=== PATIENT | female | born 1960 | race Hispanic/Latino ===

== ENCOUNTER → 2017-11-24 10:37 | Outpatient (CLI) | payer OTHER, MEDICAID, SELFPAY ==
[2017-11-24 12:03] LABS: Add Manual Diff / Slide Review NO; Basophils Percent Auto 1.2 % (0-2); Eosinophils Percent Auto 6.8 % (2-4); Hematocrit 39.6 % (36-46); Hemoglobin 12.3 g/dL (12.0-16.0); Lymphocytes Percent Auto 24.1 % (25-40); Mean Corpuscular HGB Conc 30.9 % (30-36); Mean Corpuscular Hemoglobin 20.4 PG (26-34); Mean Corpuscular Volume 66.1 fL (80-100); Monocytes Percent Auto 11.5 % (3-14); Neutrophils Absolute Auto 2800 /uL (3000-5900); Neutrophils Percent Auto 56.4 % (50-75); Platelet Count 339 X10^3/uL (150-400); Red Cell Distribution Width 16.3 % (11.6-14.8)
[2017-11-24 12:23] LABS: Alanine Aminotransferase 55 IU/L (9-52); Albumin 4.6 g/dL (3.5-5.0); Albumin Globulin Ratio 1.7 (1.0-2.8); Alkaline Phosphatase 72 U/L (38-126); Aspartate Aminotransferase 30 IU/L (14-36); Bilirubin Total 0.6 mg/dL (0.2-1.3); Blood Urea Nitrogen 15 mg/dL (7-17); C-Reactive Protein Quant 0.5 mg/dL (<1.0); Calcium 9.4 mg/dL (8.4-10.2); Carbon Dioxide 27 mmol/L (22-32); Chloride 104 mmol/L (98-107); Estimated Glomerular Filt Rate > 60.0 mL/min (>60); Globulin 2.7 g/dL (1.7-4.1); Glucose 103 mg/dL (70-100); HEMOLYSIS < 15 (0-50); Potassium 4.3 mmol/L (3.4-5.1); Sodium 145 mmol/L (137-145); Total Protein 7.3 g/dL (6.3-8.2)
[2017-11-24 12:27] LABS: Erythrocyte Sedimentation Rate 9 MM/HR (0-20)
[2017-11-24 12:33] LABS: Rheumatoid Factor < 8.6 IU/mL (<12.0)
[2017-11-24 12:51] LABS: Anisocytosis 1+; Microcytosis 2+
[2017-11-24 17:09] LABS: Hepatitis B Surface Antigen NEGATIVE s/c (NEGATIVE)
[2017-11-24 17:26] LABS: Hep C Virus Ab w/Reflex Quant NEGATIVE s/c (NEGATIVE)
[2017-11-26 12:59] LABS: CCP Antibody (IgG) < 16 Units (< 20)
== END ==
PROVIDERS: PCP Family Medicine; Visit Provider Internal Medicine Rheumatology
DX: M06.4 Inflammatory polyarthropathy (principal); Z79.899 Other long term (current) drug therapy
CPT/HCPCS: 36415; 80053; 83516; 85025; 85651; 86140; 86430; 86803; 87340

== ENCOUNTER 2018-12-17 18:26 | Emergency (ER) | payer MEDICAID, SELFPAY ==
[2018-12-17 18:36] VITALS: BP 169/98; PULSE 78; RESP 14; TEMP 37.1; O2SAT 100
--- NOTE | 2018-12-17 19:13 | ED.GENADULT ---
HPI - General Adult General Chief complaint: Eye Problems Stated complaint: eye pain sudden onset Time Seen by Provider: 12/17/18 18:54 Source: patient Mode of arrival: Wheelchair Limitations: no limitations History of Present Illness HPI narrative: Patient is a 58-year-old female. Has a history of MS. Is not currently being treated for this. Earlier this year had which she describes as an episode of optic neuritis. She was seen in outside facility. She states she was admitted for several weeks because of this. She is not currently on any treatment for this. 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 States that earlier today she had symptoms in her left eye that are consistent with prior history of optic neuritis. She also describes left temporal pain. No prior eye surgeries. No prior issues with her eyes. She does wear corrective lenses for reading. States the symptoms were fairly sudden onset however have been worsening throughout the day. Describes significant photophobia. Related Data Home Medications Medication Instructions Recorded Confirmed Bupropion Hydrochloride 150 mg PO Q DAY #0 12/14/10 (WELLBUTRIN~) CHOLECALCIFEROL (VITAMIN D3) 5,000 iu PO Q DAY #0 12/14/10 (VITAMIN D) GABAPENTIN (Gabapentin) 600 mg PO #0 12/14/10 baclofen 10 mg PO Q DAY #0 12/14/10 cyclobenzaprine 6 mg PO TID #0 12/14/10 topiramate [Topamax] 100 mg PO BID #0 12/14/10 aspirin 81 mg PO QDAY #0 03/11/17 dimethyl fumarate [Tecfidera] 120 mg PO #0 03/11/17 fluoxetine 10 mg PO #0 03/11/17 sucralfate 1 gm PO ACHS #0 03/11/17 tramadol 0 mg PO Q6HP PRN #0 03/11/17 Allergies Allergy/AdvReac Type Severity Reaction Status Date / Time ciprofloxacin [CIPROFLOXACIN] Allergy Severe DECREASED Unverified 05/25/17 11:45 BP tizanidine [TIZANIDINE] Allergy Severe DECREASED Unverified 05/25/17 11:45 BP Sulfa (Sulfonamide Allergy Mild HIVES Unverified 05/25/17 11:45 Antibiotics) [SULFA (SULFONAMIDE ANTIBIOTICS)] Review of Systems Constitutional Constitutional: Denies fever(s), Reports headache(s) and Denies weakness Eyes Eyes: Reports blurry vision, Denies change in vision, Denies decreased night vision, Denies diplopia, Denies eye discharge, Denies loss of vision and Reports photophobia Comments: Pain in left eye ENT Ears, Nose, Mouth, and Throat: Denies vertigo, Denies dizziness, Reports headache(s) and Denies disequilibrium Cardiovascular Cardiovascular: Denies chest pain, Denies syncope and Denies dyspnea Respiratory Respiratory: Denies dyspnea Gastrointestinal Gastrointestinal: Denies abdominal pain, Denies nausea and Denies vomiting Genitourinary Genitourinary: Denies dysuria Musculoskeletal Musculoskeletal: Denies myalgias and Denies arthralgias Integumentary/Breasts Skin/Breast: Denies lesions and Denies rash Neurologic Neurologic: Denies behavioral changes, Denies confusion, Denies vertigo, Denies dizziness, Denies syncope, Reports headache(s), Denies focal weakness, Denies loss of vision, Denies disequilibrium and Denies weakness Psychiatric Psychiatric: Denies behavioral changes and Denies confusion Hematologic/Lymphatic Hematologic/Lymphatic: Denies easy bleeding and Denies easy bruising Patient History Medical History Multiple sclerosis (Acute) Optic neuritis (Acute) Surgical History (Updated 06/14/17 @ 04:56 by Dangelo Shelton MD) Status post vaginal hysterectomy Social History Smoking Status: Never smoker alcohol intake frequency: holidays/special occasions only Substance Use Type: does not use Exam Initial Vital Signs Initial Vital Signs: Vital Signs Temperature 98.7 F 12/17/18 18:36 Pulse Rate 78 12/17/18 18:36 Respiratory Rate 14 12/17/18 18:36 Blood Pressure 169/98 H 12/17/18 18:36 Pulse Oximetry 100 12/17/18 18:36 Const General: cooperative, No comfortable (Uncomfortable) and well groomed Orientation: alert, awake and oriented x3 HENMT Head: normal to inspection and normocephalic Ears: TM's normal bilaterally Nose: external nose normal Face and sinus: normal facial exam Mouth: oral mucosae normal Eyes Periorbital: periorbital findings normal Eyelids: eyelids normal Pupils: pupil size bilaterally 4 EOM: EOM intact bilaterally Resp Effort & Inspection: normal respiratory effort Auscultation: clear to auscultation bilaterally Cardio Rate: regular rate Rhythm: regular rhythm GI Inspection: non-distended Palpation: soft Skin Lesions: no lesions Rashes: no rashes Neuro General: alert, awake and oriented x3 Cognition: normal cognition Speech: speech normal Gait: normal gait Extrem General: normal to inspection and capillary refill normal Psych Appearance: grossly normal and well kempt Course Orders Ordered: ED Orders 12/17/18 19:25 Basic Metabolic Panel Stat C-Reactive Protein Quant Stat Complete Blood Count AUTO DIFF Stat Erythrocyte Sedimentation Rate Stat Thyroid Stimulating Hormone Stat Discontinued Medications Morphine Sulfate (Morphine) 4 mg IV NOW ONE Stop: 12/17/18 20:43 Last Admin: 12/17/18 20:45 Dose: 4 mg Documented by: UZAIR Ondansetron HCl (Zofran) 4 mg IV NOW ONE Stop: 12/17/18 22:25 Last Admin: 12/17/18 22:31 Dose: 4 mg Documented by: MAGGIE Proparacaine HCl (Parcaine 0.5% Ophth Ethel) 1 drops EYE-RIGHT NOW ONE Stop: 12/17/18 19:02 Last Admin: 12/17/18 19:54 Dose: 2 drop Documented by: UZAIR Vital Signs Vital signs: Vital Signs - 8 hr 12/17/18 18:36 Temperature 98.7 F Pulse Rate 78 Respiratory Rate 14 Blood Pressure 169/98 H Pulse Oximetry 100 Medical Decision Making Lab Data Lab results reviewed: Yes I reviewed the patient's lab results. Result diagrams: 12/17/18 19:25 12/17/18 19:25 Labs: Lab Results 12/17/18 12/17/18 12/17/18 Range/Units 19:25 19:25 19:25 WBC 7.6 (4.5-11.0) X10^3/uL RBC 6.15 H (4.0-5.2) X10^6/uL Hgb 12.5 (12.0-16.0) g/dL Hct 39.9 (36-46) % MCV 64.9 L (80-100) fL MCH 20.3 L (26-34) PG MCHC 31.2 (30-36) % RDW 16.3 H (11.6-14.8) % Plt Count 329 (150-400) X10^3/uL Neut % (Auto) 56.3 (50-75) % Lymph % (Auto) 29.4 (25-40) % [place] % (Auto) 7.5 (3-14) % Eos % (Auto) 5.8 H (2-4) % Baso % (Auto) 1.0 (0-2) % Neut # (Auto) 4300 (5384-3216) /uL Lymph # (Auto) 2200 (8987-8140) /uL [place] # (Auto) 600 (0-900) /uL Eos # (Auto) 400 (0-450) /uL Baso # (Auto) 100 (0-100) /uL RBC Morphology Not Reportable Hypochromasia 1+ H Microcytosis 3+ H ESR 7 (0-20) MM/HR Sodium 141 (137-145) mmol/L Potassium 3.7 (3.4-5.1) mmol/L Chloride 104 (98-107) mmol/L Carbon Dioxide 27 (22-32) mmol/L BUN 13 (7-17) mg/dL Creatinine 0.50 L (0.52-1.04) mg/dL Estimated GFR > 60.0 (>60) mL/min BUN/Creatinine Ratio 26.0 H (6-22) Glucose 102 H (70-100) mg/dL Calcium 9.2 (8.4-10.2) mg/dL C-Reactive Protein 0.5 (<1.0) mg/dL TSH 4.41 (0.47-4.68) uIU/mL MDM Narrative Medical decision making narrative: Patient with significant photophobia. We were unable to obtain a visual acuity secondary this. She did receive some improvement with the tetracaine drops. Interocular pressure right eye was 22 interocular pressure left eye was 30 to however this was also in the setting where she was squinting quite a bit and also was resisting me opening her eye. This could be falsely elevated. She does have left-sided temporal pain however her ESR and CRP are negative. I feel this is unlikely temporal arteritis. Does have a history of optic neuritis. States this feels like prior history of optic neuritis. I did discuss the case with with Ophthalmology at [facility] who stated that given the complexity of the patient's symptoms that transferring her would not be unreasonable. Patient is stable for transport. I did discuss this with the patient she expressed understanding and agreement. Discharge Plan Departure Patient Disposition: [facility] Clinical Impression: Acute eye pain Prescriptions: No Action CHOLECALCIFEROL (VITAMIN D3) (VITAMIN D) 5,000 iu PO Q DAY Qty: 0 RF: 0 baclofen 10 MG tablet 10 mg PO Q DAY Qty: 0 RF: 0 GABAPENTIN (Gabapentin) 600 mg PO Qty: 0 RF: 0 Bupropion Hydrochloride (WELLBUTRIN~) 150 mg PO Q DAY Qty: 0 RF: 0 topiramate [Topamax] 100 MG tablet 100 mg PO BID Qty: 0 RF: 0 cyclobenzaprine 5 MG tablet 6 mg PO TID Qty: 0 RF: 0 aspirin 81 MG tablet,chewable 81 mg PO QDAY Qty: 0 RF: 0 sucralfate 1 GM tablet 1 gm PO ACHS Qty: 0 RF: 0 tramadol 50 MG tablet 0 mg PO Q6HP PRNQty: 0 RF: 0 fluoxetine 10 MG capsule 10 mg PO Qty: 0 RF: 0 dimethyl fumarate [Tecfidera] 120 MG capsule,delayed release(DR/EC) 120 mg PO Qty: 0 RF: 0 Referrals: Bennett Dunne MD [Primary Care Provider] -
[2018-12-17 19:37] LABS: Add Manual Diff / Slide Review NO; Basophils Absolute Auto 100 /uL (0-100); Eosinophils Absolute Auto 400 /uL (0-450); Eosinophils Percent Auto 5.8 % (2-4); Hematocrit 39.9 % (36-46); Hemoglobin 12.5 g/dL (12.0-16.0); Lymphocytes Absolute Auto 2200 /uL (1100-4500); Lymphocytes Percent Auto 29.4 % (25-40); Mean Corpuscular HGB Conc 31.2 % (30-36); Mean Corpuscular Hemoglobin 20.3 PG (26-34); Mean Corpuscular Volume 64.9 fL (80-100); Monocytes Absolute Auto 600 /uL (0-900); Monocytes Percent Auto 7.5 % (3-14); Neutrophils Absolute Auto 4300 /uL (1500-7000); Neutrophils Percent Auto 56.3 % (50-75); Platelet Count 329 X10^3/uL (150-400); Red Blood Cell Count 6.15 X10^6/uL (4.0-5.2); Red Cell Distribution Width 16.3 % (11.6-14.8); White Blood Cell Count 7.6 X10^3/uL (4.5-11.0)
[2018-12-17 19:50] LABS: Erythrocyte Sedimentation Rate 7 MM/HR (0-20)
[2018-12-17 19:54] LABS: Blood Urea Nitrogen 13 mg/dL (7-17); C-Reactive Protein Quant 0.5 mg/dL (<1.0); Calcium 9.2 mg/dL (8.4-10.2); Carbon Dioxide 27 mmol/L (22-32); Chloride 104 mmol/L (98-107); Estimated Glomerular Filt Rate > 60.0 mL/min (>60); Glucose 102 mg/dL (70-100); HEMOLYSIS < 15 (0-50); Potassium 3.7 mmol/L (3.4-5.1); Sodium 141 mmol/L (137-145)
[2018-12-17] MEDS: PROPARACAINE 0.5% OPHTH SOL 1 DROPS EYE-RIGHT (19:54)
[2018-12-17 20:09] LABS: Hypochromasia 1+; Microcytosis 3+
[2018-12-17 20:21] LABS: Thyroid Stimulating Hormone 4.41 uIU/mL (0.47-4.68)
--- NOTE | 2018-12-17 20:39 | PC.NURSE ---
Allie Paris, Friend lives here in [place]. Phone number # [phone]
[2018-12-17] MEDS: MORPHINE 4 MG/ML INJ IV (20:45)
[2018-12-17 22:31] VITALS: BP 133/73; PULSE 54; RESP 14; O2SAT 99
[2018-12-17] MEDS: ONDANSETRON 4 MG/2 ML INJ IV (22:31)
== END 2018-12-17 22:51 | disposition short-term general hospital (02) ==
PROVIDERS: Emergency Provider Emergency Medicine; PCP Family Medicine
DX: H57.12 Ocular pain, left eye (principal); H46.9 Unspecified optic neuritis; H53.149 Visual discomfort, unspecified
CPT/HCPCS: 36415; 80048; 84443; 85025; 85651; 86140; 96374; 96375; 99283; 99284; J2270; J2405

== ENCOUNTER → 2019-02-08 11:31 | Outpatient (CLI) | payer OTHER, MEDICAID, SELFPAY ==
[2019-02-08 11:39] LABS: Bacteria Urine None Seen; RBC Urine None Seen (0-5/HPF)
[2019-02-08 12:00] LABS: Add Manual Diff / Slide Review NO; Basophils Absolute Auto 100 /uL (0-100); Basophils Percent Auto 1.8 % (0-2); Eosinophils Absolute Auto 500 /uL (0-450); Eosinophils Percent Auto 7.3 % (2-4); Hematocrit 36.6 % (36-46); Hemoglobin 11.8 g/dL (12.0-16.0); Lymphocytes Absolute Auto 1900 /uL (1100-4500); Lymphocytes Percent Auto 24.8 % (25-40); Mean Corpuscular HGB Conc 32.2 % (30-36); Mean Corpuscular Hemoglobin 20.8 PG (26-34); Mean Corpuscular Volume 64.7 fL (80-100); Monocytes Absolute Auto 600 /uL (0-900); Monocytes Percent Auto 8.5 % (3-14); Neutrophils Absolute Auto 4300 /uL (1500-7000); Neutrophils Percent Auto 57.6 % (50-75); Platelet Count 357 X10^3/uL (150-400); Red Blood Cell Count 5.66 X10^6/uL (4.0-5.2); Red Cell Distribution Width 15.8 % (11.6-14.8); White Blood Cell Count 7.5 X10^3/uL (4.5-11.0)
[2019-02-08 12:26] LABS: Appearance Urine UA CLOUDY; Bilirubin Urine UA NEGATIVE (NEGATIVE); Color Urine UA YELLOW; Glucose Urine UA NEGATIVE (Negative); Ketones Urine UA NEGATIVE (NEGATIVE); Leukocyte Esterase Urine UA NEGATIVE (NEGATIVE); Nitrite Urine UA NEGATIVE (Negative); Occult Blood Urine UA NEGATIVE (Negative); Protein Urine UA NEGATIVE (Negative); Urobilinogen Urine UA 0.2 E.U./dL (0.2)
[2019-02-08 12:29] LABS: pH Urine UA 7.5 (4.5-8.0)
[2019-02-08 12:33] LABS: Erythrocyte Sedimentation Rate 19 MM/HR (0-20)
[2019-02-08 12:35] LABS: Hypochromasia 1+; Microcytosis 3+; Target Cells 2+
[2019-02-08 12:38] LABS: Squamous Epithelial Cell Urine 1-5 /HPF (0-5/HPF); WBC Urine 0-1/HPF (0-5/HPF)
[2019-02-08 12:39] LABS: Amorphous Sediment Urine 3+; Culture Indicated Urine Cult Not Indicated
[2019-02-08 13:14] LABS: Alanine Aminotransferase 47 IU/L (<35); Albumin 4.6 g/dL (3.5-5.0); Albumin Globulin Ratio 1.6 (1.0-2.8); Alkaline Phosphatase 92 U/L (38-126); Aspartate Aminotransferase 37 IU/L (14-36); Bilirubin Total 0.7 mg/dL (0.2-1.3); Blood Urea Nitrogen 15 mg/dL (7-17); C-Reactive Protein Quant 0.8 mg/dL (<1.0); Calcium 9.5 mg/dL (8.4-10.2); Carbon Dioxide 25 mmol/L (22-32); Chloride 106 mmol/L (98-107); Estimated Glomerular Filt Rate > 60.0 mL/min (>60); Globulin 2.8 g/dL (1.7-4.1); Glucose 92 mg/dL (70-100); HEMOLYSIS < 15 (0-50); Potassium 3.9 mmol/L (3.4-5.1); Sodium 142 mmol/L (137-145); Total Protein 7.4 g/dL (6.3-8.2)
[2019-02-08 14:28] LABS: Creatinine Urine Random 91.4 mg/dL; Protein (Total) Urine Random 9 mg/dL (0-12); Protein Creatinine Ratio Urine 0.09 GRAM/24H
== END ==
PROVIDERS: PCP Family Medicine; Visit Provider Internal Medicine Rheumatology
DX: M06.09 Rheumatoid arthritis without rheumatoid factor, multiple sites (principal); Z79.899 Other long term (current) drug therapy
CPT/HCPCS: 36415; 80053; 81001; 82570; 84156; 85025; 85651; 86140

== ENCOUNTER → 2019-06-13 12:39 | Outpatient (CLI) | payer OTHER, MEDICAID, SELFPAY ==
[2019-06-13 13:38] LABS: Add Manual Diff / Slide Review NO; Basophils Absolute Auto 100 /uL (0-100); Basophils Percent Auto 0.8 % (0-2); Eosinophils Absolute Auto 700 /uL (0-450); Eosinophils Percent Auto 10.6 % (2-4); Hematocrit 38.1 % (36-46); Hemoglobin 11.9 g/dL (12.0-16.0); Lymphocytes Absolute Auto 2200 /uL (1100-4500); Lymphocytes Percent Auto 32.7 % (25-40); Mean Corpuscular HGB Conc 31.1 % (30-36); Mean Corpuscular Hemoglobin 20.8 PG (26-34); Mean Corpuscular Volume 66.8 fL (80-100); Monocytes Absolute Auto 400 /uL (0-900); Monocytes Percent Auto 6.5 % (3-14); Neutrophils Absolute Auto 3400 /uL (1500-7000); Neutrophils Percent Auto 49.4 % (50-75); Platelet Count 316 X10^3/uL (150-400); Red Cell Distribution Width 16.5 % (11.6-14.8); White Blood Cell Count 6.8 X10^3/uL (4.5-11.0)
[2019-06-13 14:07] LABS: Alanine Aminotransferase 43 IU/L (<35); Albumin Globulin Ratio 1.5 (1.0-2.8); Alkaline Phosphatase 76 U/L (38-126); Aspartate Aminotransferase 41 IU/L (14-36); BUN Creatinine Ratio 24.6 (6-22); Bilirubin Total 0.7 mg/dL (0.2-1.3); Blood Urea Nitrogen 14 mg/dL (7-17); Calcium 9.8 mg/dL (8.4-10.2); Carbon Dioxide 20 mmol/L (22-32); Chloride 108 mmol/L (98-107); Estimated Glomerular Filt Rate > 60.0 mL/min (>60); Globulin 3.4 g/dL (1.7-4.1); Glucose 140 mg/dL (70-100); HEMOLYSIS < 15 (0-50); Potassium 3.6 mmol/L (3.4-5.1); Sodium 141 mmol/L (137-145); Total Protein 8.4 g/dL (6.3-8.2)
[2019-06-13 14:08] LABS: Anisocytosis 1+; Microcytosis 2+; Target Cells 1+
== END ==
PROVIDERS: PCP Family Medicine; Referring Provider Internal Medicine Rheumatology; Visit Provider Internal Medicine Rheumatology
DX: M06.09 Rheumatoid arthritis without rheumatoid factor, multiple sites (principal); Z79.899 Other long term (current) drug therapy
CPT/HCPCS: 36415; 80053; 85025

== ENCOUNTER → 2019-09-20 10:39 | Outpatient (CLI) | payer OTHER, MEDICAID, SELFPAY ==
--- NOTE | 2019-09-24 09:47 | PM.PFT.1 ---
Pulmonary Function Test Referral & Results Date Patient Seen: 09/20/19 Requesting provider: Rachelle Gomes Results: The spirometry demonstrates an FVC of 2.81 L which is 89% of predicted. The FEV1 was measured at 2.22 L which is 90% of predicted. The FEV1/FVC ratio was 79 which is 99% of predicted. Following the administration of bronchodilator there was no appreciable change to above normal numbers. Lung volumes show an SVC of 2.84 L which is 97% of predicted. The diffusing capacity was measured at 23.07 which is 107% of predicted. The maximum voluntary ventilation was normal Interpretation: This study demonstrates normal pulmonary function
== END ==
PROVIDERS: PCP Family Medicine; Referring Provider Family Medicine; Visit Provider Family Medicine
DX: M34.1 CR(E)ST syndrome (principal)
CPT/HCPCS: 94060; 94726; 94729

== ENCOUNTER → 2019-10-10 11:01 | Outpatient (CLI) | payer OTHER, MEDICAID, SELFPAY ==
--- NOTE | 2019-10-10 11:07 | DI.CT.S_ITS ---
PROCEDURE: CT CHEST HIGH RESOLUTION INDICATIONS: CR(E)ST syndrome TECHNIQUE: Noncontrast 1.0 and 5.0 mm thick contiguous axial sections from the pulmonary apex to the posterior costophrenic angles, with 7 mm thick coronal and sagittal MIP reformats. 1 mm thick dynamic expiratory images acquired through the upper, mid, and lower lungs. 1.0 mm thick axial sections acquired from the kathya to the posterior costophrenic angles in the prone end-inspiration position. For radiation dose reduction, the following was used: automated exposure control, adjustment of mA and/or kV according to patient size. COMPARISON: [facility], CR, XR CHEST 1 VIEW, 09/01/2019, 23:35. FINDINGS: Image quality: Excellent. Lungs: Normal examination. Pleura: No pleural effusions or pneumothorax. Mediastinum: Heart size is normal. No pericardial effusion. Thoracic aorta and central pulmonary arteries are normal in size. Esophagus is normal in caliber. Bones and chest wall: No suspicious bony lesions. No vertebral body compression fractures. Abdomen: Visualized upper abdominal solid organs and bowel loops appear normal. IMPRESSION: Normal examination, no evidence of fibrotic change or interstitial lung disease. Dictated by: Teodoro Moe M.D. on 10/10/2019 at 12:09 Approved by: Teodoro Moe M.D. on 10/10/2019 at 12:10
== END ==
PROVIDERS: PCP Family Medicine; Referring Provider Internal Medicine Rheumatology; Visit Provider Internal Medicine Rheumatology
DX: M34.1 CR(E)ST syndrome (principal)
CPT/HCPCS: 71250

== ENCOUNTER 2020-01-18 09:32 | Day surgery (SDC) | payer OTHER, MEDICAID, SELFPAY ==
--- NOTE | 2020-01-18 | PATH_ITS ---
[facility] Accession Number: [id number] . 01 Material submitted: . colon - POLYP AT 35 CM . 01 Clinical history: . SCREENING COLONOSCOPY . 02 Diagnosis: Colon, Polyp at 35 cm, Biopsy: Hyperplastic polyp. Additional levels were examined. [facility] 01/22/2020 1625 Local . 02 Electronically signed: . Chapis Wilkes MD, Pathologist NPI- [id number] . 01 Gross description: . POLYP AT 35 CM: Received in formalin is 1 fragment(s) of garcia, soft tissue measuring 0.4 x 0.4 x 0.1 cm submitted entirely in 1 cassette(s) /QBJ 01/19/2020 0646 Local . 02 Pathologist provided ICD-10: K63.5 . 02 CPT . 813554 Performed at: 01 [facility] [address] [id number] MD [place] Patiño MD Phone: [phone] Performed at: 02 [facility] [address] [place], [place] [id number] MD Chapis Wilkes MD Phone: [phone]
[2020-01-18 10:28] VITALS: BP 115/70; PULSE 59; RESP 18; TEMP 36.4; O2SAT 98
[2020-01-18 10:31] VITALS: BMI 27.6
[2020-01-18] MEDS: SODIUM CHLORIDE 0.9% 1,000 ML 200 ML IV (10:45)
--- NOTE | 2020-01-18 11:02 | PM.HP.1 ---
History of Present Illness History of Present Illness Date Patient Seen: 01/18/20 Time Patient Seen: 11:02 Chief complaint: SCREENING COLONOSCOPY Narrative: This is a 59-year-old woman who had a screening colonoscopy 5 years ago, and was recommended to have a repeat in 5 years due to poor prep. She denies any symptoms of hematochezia, unexplained abdominal pain, unexplained weight loss. She does say she sometimes has melena, and her primary doctor believe she has an ulcer. She had an EGD in [address] Ivan, which was essentially normal. ROS: Arthritis, pain in knees and neck, headaches/migraines, multiple sclerosis, fibromyalgia. Thirteen system review is otherwise negative other than as mentioned below and in HPI. PE: GENERAL: Well groomed and cooperative. Appears stated age. Answers questions promptly and appropriately. Vital signs noted. HENT: Normocephalic, atraumatic. Hearing intact. EYES: Conjunctiva pink, sclera white, no periorbital swelling. CARDIOVASCULAR: Regular rate. No pedal edema. RESPIRATORY: Non-tachypneic, breathing comfortably on room air. GASTROINTESTINAL: Abdomen soft and non-distended GENITALURINARY: No flank tenderness. MUSCULOSKELETAL: Equal tone and mass bilaterally. SKIN: Warm, dry, soft, appropriate color for ethnicity. No other lesions, rashes, or wounds. NEURO: Alert and Oriented X 3. No gross sensory deficits, or cognitive issues. PSYCH: Appropriate affect and mood. Patient History Medical History Multiple sclerosis Optic neuritis Surgical History Status post vaginal hysterectomy Family & Social History Social History: household members none Tobacco & Substance use: Smoking Status Never smoker alcohol intake never alcohol intake frequency holiday/special occasion Substance Use Type does not use Meds Home Medications and Allergies Home Medications Medication Instructions Recorded Confirmed Type CHOLECALCIFEROL (VITAMIN D3) 50,000 iu PO WEEKLY #0 12/14/10 01/18/20 History (VITAMIN D) GABAPENTIN (Gabapentin) 600 mg PO DAILY #0 12/14/10 01/18/20 History baclofen 10 mg PO TID #0 12/14/10 01/18/20 History topiramate [Topamax] 100 mg PO BID #0 12/14/10 01/18/20 History fluoxetine 10 mg PO DAILY #0 03/11/17 01/18/20 History sucralfate 1 gm PO ACHS #0 03/11/17 01/18/20 History tramadol 50 - 100 mg PO Q6HP PRN #0 03/11/17 01/18/20 History albuterol sulfate 2.5 mg INHALATION Q4H PRN 01/18/20 01/18/20 History cetirizine 10 mg PO DAILY 01/18/20 01/18/20 History fluticasone furoate 2 inh INHALATION DAILY 01/18/20 01/18/20 History folic acid 5 mg PO DAILY 01/18/20 01/18/20 History methotrexate 15 mg PO WEEKLY 01/18/20 01/18/20 History prochlorperazine 10 mg PO TID PRN 01/18/20 01/18/20 History sucralfate 1 g PO QACHS PRN 01/18/20 01/18/20 History sumatriptan 100 mg PO Q4H PRN 01/18/20 01/18/20 History topiramate 100 mg PO BID 01/18/20 01/18/20 History tramadol 50 mg PO Q6H PRN 01/18/20 01/18/20 History Allergies Allergy/AdvReac Type Severity Reaction Status Date / Time ciprofloxacin [CIPROFLOXACIN] Allergy Severe DECREASED Verified 01/18/20 10:06 BP tizanidine [TIZANIDINE] Allergy Severe DECREASED Verified 01/18/20 10:06 BP Sulfa (Sulfonamide Allergy Mild HIVES Verified 01/18/20 10:06 Antibiotics) [SULFA (SULFONAMIDE ANTIBIOTICS)] Exam Vital Signs (past 8 hours): - 01/18/20 10:28 Temperature 97.6 F Pulse Rate 59 L Respiratory Rate 18 Blood Pressure 115/70 Pulse Oximetry 98 Oxygen Delivery Method Room Air Assessment & Plan Assessment and plan (1) Melena: Status: Acute (2) At average risk for colon cancer: Status: Acute (3) Migraines: Status: Acute (4) Multiple sclerosis: Status: Acute Assessment & Plan narrative: Risks and benefits of screening colonoscopy and possible polypectomy were discussed with the patient including risk of bleeding, perforation, need for additional procedures, risks of anesthesia. The patient desires to proceed with the colonoscopy procedure. COVID-19 COVID-19 status: Negative Result date/Date tested (Pos, Neg/Pending): 01/18/20 Time Spent With Patient Time with patient: 15-24 minutes Quality VTE Deep Vein Thrombosis/Pulmonary Embolism Present on Admission: No
[2020-01-18] MEDS: MIDAZOLAM 5 MG/5 ML VIAL IV (11:07)
[2020-01-18] MEDS: fentaNYL 250 MCG/5 ML INJ IV (11:07)
--- NOTE | 2020-01-18 11:27 | P.OP.ENDO_ITS ---
Operative Date/Time/Diagnoses Date of procedure: 01/18/20 Time of procedure: 11:27 Pre-op diagnosis: Average risk for colon cancer, due for follow-up screening colonoscopy Post-op diagnosis: other (Small polyp at 35 cm) Procedure & Clinicians Study performed: Colonoscopy Procedural sedation performed by the endoscopist Polypectomy with Jumbo forceps at 35 senna Same procedure as scheduled: Yes Indications: Average risk for colon cancer, due for screening colonoscopy Surgeon: Jewels Kinney Procedure Notes SCOAP/Timeout: Performed Procedure in detail: The patient was brought to the room and placed in left lateral decubitus position with all bony prominences padded. A time-out was performed and then the patient was given procedural sedation starting with 2 mg of Versed and 100 mcg of fentanyl. A total of 4 mg of Versed and 150 micro g of fentanyl were given for the entire procedure. Vitals were monitored throughout the procedure and remained stable. Once adequately sedated, the procedure was begun. A rectal exam was performed revealing no abnormalities. The colonoscope was then introduced to the rectum and advanced to the cecum in the usual fashion. The cecum was identified by the appendiceal orifice, the mucosal tri- fold, and the ileocecal valve. The scope was then retracted while rotating side to side and examining each mucosal fold. A small polyp was found at 35 cm and removed with Jumbo forceps. At the conclusion of the procedure retroflexion was performed and small grade 1-2 internal hemorrhoids without stigmata of bleeding were seen. The scope was then withdrawn from the rectum the procedure was concluded. The patient tolerated the procedure well and was transferred to the PACU in stable condition. Scope withdrawal time: 13 Sedation minutes: 24 Findings: polyp Specimen(s): other (Small polyp at 35 cm) Complications: none Impression: Normal colon with a benign-appearing polyp Post-procedure Recommendations: Colonscopy in 10 years (As long as pathology is benign) Follow up: as needed Disposition: PACU
[2020-01-18 11:33] VITALS: BP 110/64; PULSE 60; RESP 10; TEMP 36.6; O2SAT 99
[2020-01-18 11:38] VITALS: BP 106/67; PULSE 59; RESP 10; O2SAT 100
[2020-01-18 11:43] VITALS: BP 96/69; PULSE 68; RESP 16; O2SAT 100
[2020-01-18 11:50] VITALS: BP 105/64; PULSE 60; RESP 14; O2SAT 100
--- NOTE | 2020-01-18 12:14 | SUR.PHASEII ---
Pt's ride is currently at [facility] having tires changed. He will call when he gets to [facility].
[2020-01-18 12:15] VITALS: BP 118/64; PULSE 68; RESP 14; TEMP 37.2; O2SAT 100
== END 2020-01-18 12:40 | disposition home or self-care (01) ==
PROVIDERS: PCP Family Medicine; Referring Provider Surgery; Visit Provider Surgery
PROC: 0DJD8ZZ Inspection of Lower Intestinal Tract, Via Natural or Artificial Opening Endoscopic (ICD-10-PCS; CPT 45378; principal; 2020-01-18 10:45)
DX: K92.1 Melena (principal); G35 Multiple sclerosis; G43.909 Migraine, unspecified, not intractable, without status migrainosus; K64.0 First degree hemorrhoids; K63.5 Polyp of colon
CPT/HCPCS: 45380; 99152; J2250; J3010

== ENCOUNTER 2020-04-04 09:33 | Day surgery (SDC) | payer OTHER, MEDICAID, SELFPAY ==
--- NOTE | 2020-04-04 | PATH_ITS ---
[facility] Accession Number: [id number] . 01 Material submitted: . PART A: duodenum - DUODENUM PART B: gastrointestinal site - STOMACH PART C: gastrointestinal site - STOMACH POLYPS PART D: esophagus - ESOPHAGUS . 01 Clinical history: . EGD . 02 Diagnosis: A. Duodenum, Biopsy: Duodenal mucosa with no diagnostic abnormality. Negative for active inflammation, features of sprue, dysplasia and malignancy. . B. Stomach, Biopsy: Antral mucosa with no significant diagnostic abnormality. No evidence of Helicobacter on H/E stain. Negative for intestinal metaplasia. Negative for dysplasia and malignancy. . C. Stomach, Polyps, Biopsies: Body-type mucosa with a few dilated glands, consistent with fundic gland polyps. No evidence of Helicobacter on H/E stain. Negative for intestinal metaplasia. Negative for dysplasia and malignancy. . D. Esophagus, Biopsy: Squamocolumnar junctional mucosa with no diagnostic abnormality. Negative for intestinal metaplasia. Negative for dysplasia and malignancy. . [facility] 04/08/2020 0952 Local . 02 Comment: Part B: An immunohistochemical stain will be performed to evaluate for Helicobacter organisms and the results reported as an addendum. . 02 Electronically signed: . Chapis Wilkes MD, Pathologist NPI- [id number] . 01 Gross description: . Part A: DUODENUM: Received in formalin are 2 fragment(s) of garcia, soft tissue measuring 0.3 x 0.2 x 0.2 cm to 0.2 x 0.2 x 0.1 cm submitted entirely in 1 cassette(s) Part B: STOMACH: Received in formalin is 1 fragment(s) of garcia, soft tissue measuring 0.3 x 0.3 x 0.2 cm submitted entirely in 1 cassette(s) Part C: STOMACH POLYPS: Received in formalin are 3 fragment(s) of garcia, soft tissue measuring 0.3 x 0.2 x 0.1 cm to 0.2 x 0.2 x 0.1 cm submitted entirely in 1 cassette(s) Part D: ESOPHAGUS: Received in formalin are 2 fragment(s) of garcia, soft tissue measuring 0.4 x 0.3 x 0.1 cm to 0.4 x 0.2 x 0.1 cm submitted entirely in 1 cassette(s) /QZee 04/05/2020 [facility] Local . 02 Pathologist provided ICD-10: K92.1 . 02 CPT . 160304, 943690, 009030, 929624, L21373 Performed at: 01 [facility] [address] [place] [address], [place], [place] [id number] MD [place] Patiño MD Phone: [phone] Performed at: 02 [facility] [address] [place], [place] [id number] MD Chapis Wilkes MD Phone: [phone]
[2020-04-04 09:57] VITALS: BP 124/67; PULSE 68; RESP 16; TEMP 37; O2SAT 98; BMI 28.3
[2020-04-04] MEDS: SODIUM CHLORIDE 0.9% 1,000 ML 200 ML IV (10:19)
--- NOTE | 2020-04-04 10:45 | PM.PREOP ---
Pre-operative Note COVID-19 COVID-19 status: Negative Result date/Date tested (Pos, Neg/Pending): 04/02/20 Interval Note History & Physical reviewed/Exam performed by Physician: Yes Changes to H&P: No ASA Class (for procedural sedation): II
--- NOTE | 2020-04-04 10:57 | PM.OP.ENDO ---
Operative Date/Time/Diagnoses Date of procedure: 04/04/20 Time of procedure: 10:57 Pre-op diagnosis: Melena, epigastric pain Post-op diagnosis: other (Severe endoscopic gastritis) Procedure & Clinicians Study performed: Esophagogastroduodenoscopy Procedural sedation performed by the endoscopy Biopsies of duodenum, stomach, gastric polyps, distal soft Same procedure as scheduled: Yes Indications: Melena, epigastric pain Surgeon: Jewels Kinney Procedure Notes SCOAP/Timeout: Performed Procedure in detail: The patient was brought to the room and placed in left lateral decubitus position with all bony prominences padded. A bite block was positioned in the patient's mouth to protect the lips, teeth, and tongue for the procedure. A time-out was performed and then the patient was given procedural sedation starting with mg of Versed and [100 mcg of fentanyl. Vitals were monitored throughout the procedure and remained stable. Once adequately sedated, the procedure was begun. The lubricated gastroscope was passed through the bite block and across the tongue and into the esophagus without incident. A tubular view of the esophagus was maintained as the scope was advanced through the esophagus and into the stomach. The scope was advanced through the stomach and to the pylorus. The scope was gently popped through the pylorus and into the duodenal bulb. The scope was flexed and advanced into the second and third portions of the duodenum. The duodenum and duodenal bulb appeared fairly normal with the appearance of mild inflammation. Biopsies were taken. The scope was withdrawn into the stomach. The antrum revealed uist-ca-datikosw gastritis. Biopsies were taken. There were multiple benign-appearing polyps in the stomach. Two of them were removed for pathology. The upper body and fundus of the stomach revealed severe gastritis. The scope was retroflexed and the gastric cardia was examined. The hiatus appeared fairly normal without any significant gaping around the scope, or visible ulceration. The scope was then straightened, and withdrawn into the esophagus. The Z-line appeared fairly normal. Biopsies were taken. The distal esophagusappeared fairly normal. The scope was then withdrawn through the esophagus with a tubular view. The scope was then withdrawn from the patient the procedure was concluded. The patient tolerated the procedure well and was transferred to the PACU in stable condition. Sedation minutes: 14 Findings: gastritis (Severe) and polyp (Benign-appearing gastric polyps) Specimen(s): other (Duodenum, stomach, gastric polyps, distal esophagus) Complications: none Impression: There was the visual appearance of severe gastritis in the upper body and fundus of the stomach. This is the most likely source of melena, and pain. Post-procedure Recommendations: Start medication(s) (Would start PPI) and Other recommendation (Follow-up EGD, and any further recommendations will be made when biopsy results return.) Follow up: as needed Disposition: PACU
[2020-04-04] MEDS: MIDAZOLAM 5 MG/5 ML VIAL IV (11:15)
[2020-04-04] MEDS: LIDOCAINE 4% SOLN 50 ML 20 ML TOP (11:15)
[2020-04-04 11:16] VITALS: BP 124/67; PULSE 67; RESP 11; TEMP 36.1; O2SAT 96
[2020-04-04] MEDS: fentaNYL 250 MCG/5 ML INJ IV (11:16)
[2020-04-04 11:21] VITALS: BP 108/71; PULSE 64; RESP 11; O2SAT 96
[2020-04-04 11:26] VITALS: BP 103/60; PULSE 71; RESP 11; O2SAT 97
[2020-04-04 11:32] VITALS: BP 117/75; PULSE 66; RESP 15; O2SAT 97
[2020-04-04 11:36] VITALS: BP 116/60; PULSE 67; RESP 11; TEMP 36.7; O2SAT 95
== END 2020-04-04 12:05 | disposition home or self-care (01) ==
PROVIDERS: PCP Family Medicine; Referring Provider Surgery; Visit Provider Surgery
PROC: 0DJ08ZZ Inspection of Upper Intestinal Tract, Via Natural or Artificial Opening Endoscopic (ICD-10-PCS; CPT 43235; principal; 2020-04-04 10:45)
DX: R10.13 Epigastric pain (principal); K92.1 Melena; K31.7 Polyp of stomach and duodenum; K29.60 Other gastritis without bleeding
CPT/HCPCS: 43239; 99152; J2250; J3010

== ENCOUNTER → 2020-12-04 10:52 | Outpatient (CLI) | payer OTHER, MEDICAID, SELFPAY ==
[2020-12-04 12:19] LABS: Add Manual Diff / Slide Review NO; Basophils Absolute Auto 100 /uL (0-100); Basophils Percent Auto 2.3 % (0-2); Eosinophils Absolute Auto 600 /uL (0-450); Eosinophils Percent Auto 10.8 % (2-4); Hematocrit 38.7 % (36-46); Hemoglobin 12.1 g/dL (12.0-16.0); Lymphocytes Absolute Auto 2000 /uL (1100-4500); Lymphocytes Percent Auto 36.3 % (25-40); Mean Corpuscular HGB Conc 31.2 % (30-36); Mean Corpuscular Hemoglobin 20.7 PG (26-34); Mean Corpuscular Volume 66.4 fL (80-100); Monocytes Absolute Auto 400 /uL (0-900); Monocytes Percent Auto 7.6 % (3-14); Neutrophils Absolute Auto 2300 /uL (1500-7000); Platelet Count 298 X10^3/uL (150-400); Red Blood Cell Count 5.82 X10^6/uL (4.0-5.2); Red Cell Distribution Width 16.3 % (11.6-14.8); White Blood Cell Count 5.4 X10^3/uL (4.5-11.0)
[2020-12-04 12:47] LABS: Alanine Aminotransferase 133 IU/L (<35); Albumin 4.6 g/dL (3.5-5.0); Albumin Globulin Ratio 1.5 (1.0-2.8); Alkaline Phosphatase 80 U/L (38-126); Aspartate Aminotransferase 84 IU/L (14-36); BUN Creatinine Ratio 20.8 (6-22); Bilirubin Total 0.6 mg/dL (0.2-1.3); Blood Urea Nitrogen 11 mg/dL (7-17); Calcium 9.4 mg/dL (8.4-10.2); Carbon Dioxide 29 mmol/L (22-32); Chloride 104 mmol/L (98-107); Estimated Glomerular Filt Rate > 60.0 mL/min (>60); Glucose 93 mg/dL (80-110); HEMOLYSIS < 15 (0-50); Potassium 4.3 mmol/L (3.4-5.1); Sodium 143 mmol/L (137-145); Total Protein 7.6 g/dL (6.3-8.2)
[2020-12-04 13:30] LABS: Microcytosis 1+; Target Cells 2+
== END ==
PROVIDERS: PCP Family Medicine; Referring Provider Internal Medicine Rheumatology; Visit Provider Internal Medicine Rheumatology
DX: Z79.899 Other long term (current) drug therapy (principal); M06.09 Rheumatoid arthritis without rheumatoid factor, multiple sites
CPT/HCPCS: 36415; 80053; 85025

== ENCOUNTER → 2021-01-01 10:34 | Outpatient (CLI) | payer OTHER, MEDICAID, SELFPAY ==
[2021-01-01 11:07] LABS: Add Manual Diff / Slide Review NO; Basophils Absolute Auto 100 /uL (0-100); Eosinophils Absolute Auto 500 /uL (0-450); Eosinophils Percent Auto 7.2 % (2-4); Hematocrit 37.5 % (36-46); Hemoglobin 11.8 g/dL (12.0-16.0); Lymphocytes Absolute Auto 2100 /uL (1100-4500); Lymphocytes Percent Auto 29.8 % (25-40); Mean Corpuscular HGB Conc 31.5 % (30-36); Mean Corpuscular Hemoglobin 20.7 PG (26-34); Mean Corpuscular Volume 65.8 fL (80-100); Monocytes Absolute Auto 800 /uL (0-900); Monocytes Percent Auto 11.7 % (3-14); Neutrophils Absolute Auto 3500 /uL (1500-7000); Neutrophils Percent Auto 50.3 % (50-75); Platelet Count 285 X10^3/uL (150-400); Red Cell Distribution Width 16.3 % (11.6-14.8)
[2021-01-01 12:46] LABS: Hypochromasia 2+; Microcytosis 3+; Poikilocytosis 1+; Target Cells 1+
[2021-01-01 12:59] LABS: Alanine Aminotransferase 64 IU/L (<35); Albumin 4.4 g/dL (3.5-5.0); Albumin Globulin Ratio 1.7 (1.0-2.8); Alkaline Phosphatase 69 U/L (38-126); Aspartate Aminotransferase 38 IU/L (14-36); BUN Creatinine Ratio 21.4 (6-22); Bilirubin Total 0.5 mg/dL (0.2-1.3); Blood Urea Nitrogen 18 mg/dL (7-17); Calcium 9.4 mg/dL (8.4-10.2); Carbon Dioxide 31 mmol/L (22-32); Chloride 102 mmol/L (98-107); Estimated Glomerular Filt Rate > 60.0 mL/min (>60); Globulin 2.6 g/dL (1.7-4.1); Glucose 81 mg/dL (80-110); HEMOLYSIS < 15 (0-50); Sodium 140 mmol/L (137-145)
== END ==
PROVIDERS: PCP Family Medicine; Referring Provider Internal Medicine Rheumatology; Visit Provider Internal Medicine Rheumatology
DX: M06.09 Rheumatoid arthritis without rheumatoid factor, multiple sites (principal); Z79.899 Other long term (current) drug therapy
CPT/HCPCS: 36415; 80053; 85025

== ENCOUNTER → 2021-09-01 10:07 | Outpatient (CLI) | payer OTHER, MEDICAID, SELFPAY ==
[2021-09-01 12:34] LABS: Basophils Absolute Auto 100 /uL (0-100); Basophils Percent Auto 1.1 % (0-2); Eosinophils Absolute Auto 600 /uL (0-450); Eosinophils Percent Auto 8.8 % (2-4); Hematocrit 39.5 % (36-46); Hemoglobin 12.6 g/dL (12.0-16.0); Lymphocytes Absolute Auto 2500 /uL (1100-4500); Lymphocytes Percent Auto 36.2 % (25-40); Mean Corpuscular Hemoglobin 20.6 PG (26-34); Mean Corpuscular Volume 64.3 fL (80-100); Monocytes Absolute Auto 500 /uL (0-900); Monocytes Percent Auto 7.9 % (3-14); Neutrophils Absolute Auto 3200 /uL (1500-7000); Platelet Count 335 X10^3/uL (150-400); Red Blood Cell Count 6.14 X10^6/uL (4.0-5.2); Red Cell Distribution Width 15.2 % (11.6-14.8)
[2021-09-01 12:36] LABS: Add Manual Diff / Slide Review SLIDE REVIEW
[2021-09-01 12:49] LABS: Alanine Aminotransferase 38 IU/L (<35); Albumin 4.9 g/dL (3.5-5.0); Albumin Globulin Ratio 1.4 (1.0-2.8); Alkaline Phosphatase 72 U/L (38-126); Aspartate Aminotransferase 36 IU/L (14-36); BUN Creatinine Ratio 26.8 (6-22); Bilirubin Total 0.6 mg/dL (0.2-1.3); Blood Urea Nitrogen 15 mg/dL (7-17); Calcium 9.3 mg/dL (8.4-10.2); Carbon Dioxide 26 mmol/L (22-32); Chloride 103 mmol/L (98-107); Estimated Glomerular Filt Rate > 60 mL/min (>60); Globulin 3.5 g/dL (1.7-4.1); Glucose 110 mg/dL (80-110); HEMOLYSIS < 15 (0-50); Potassium 3.9 mmol/L (3.4-5.1); Sodium 141 mmol/L (137-145); Total Protein 8.4 g/dL (6.3-8.2)
[2021-09-01 12:53] LABS: Anisocytosis 1+; Hypochromasia 2+; Ovalocytes 1+; Poikilocytosis 1+; Target Cells 2+
[2021-09-01 12:54] LABS: Microcytosis 1+
== END ==
PROVIDERS: PCP Family Medicine; Referring Provider Internal Medicine Rheumatology; Visit Provider Internal Medicine Rheumatology
DX: M06.09 Rheumatoid arthritis without rheumatoid factor, multiple sites (principal); Z79.899 Other long term (current) drug therapy
CPT/HCPCS: 36415; 80053; 85025

== ENCOUNTER → 2021-09-03 12:32 | Outpatient (CLI) | payer OTHER, MEDICAID, SELFPAY ==
--- NOTE | 2021-09-03 | DI.MRI.S_ITS ---
PROCEDURE: MR HEAD/BRAIN WO/W CON INDICATIONS: Multiple sclerosis TECHNIQUE: Noncontrast axial T1 spin echo, axial T2 fast spin echo, sagittal and axial FLAIR, coronal T2 fast spin echo, axial gradient echo, axial diffusion and ADC through the brain. After the administration of contrast, axial and coronal and sagittal 3D VIBE or T1 spin echo with fat saturation through the brain. COMPARISON: [facility], MR, MR MS BRAIN WITH/WITHOUT CONTRAST, 06/05/2020, 13:16. FINDINGS: Image quality: Excellent. CSF Spaces: Basal cisterns are patent. No extra-axial fluid collections. Ventricles are normal in size and shape. Brain: Nonspecific white matter hyperintensities present in the subcortical white matter. Small right frontal white matter lacunar old infarct with surrounding gliosis noted. There are greater than 10 lesions in both cerebral hemispheres. No brainstem or infratentorial involvement. No enhancing lesions. On image /15, there is a left frontal subcortical lesion which has increased in size compared to the prior exam. No midline shift. No intracranial bleeds or masses. The brainstem appears normal. Diffusion-weighted images demonstrate no acute infarct. Normal intravascular flow voids are present. Skull and face: Calvarial marrow is normal in signal. Orbits appear normal. Sinuses: Sinuses and mastoids appear clear. IMPRESSION: Nonspecific subcortical white matter hyperintensities. There is a left frontal hyperintensity which has increased in size from the prior exam without current enhancement. Distribution is consistent with but not specific for given history of multiple sclerosis Approved by: Yimi Norton M.D. on 09/03/2021 at 13:48
--- NOTE | 2021-09-03 | DI.MRI.S_ITS ---
PROCEDURE: MR CERVICAL SPINE WO/W CON INDICATIONS: Multiple sclerosis TECHNIQUE: Noncontrast sagittal T1 spin echo and T2 fast spin echo, sagittal STIR, sagittal PD fast spin echo, foraminal oblique sagittal T2 fast spin echo, axial gradient echo or T2 fast spin echo through the cervical spine. After the administration of contrast, sagittal and axial T1 spin echo with fat saturation through the cervical spine. COMPARISON: [facility], MR, MR CERVICAL SPINE WITH/WITHOUT CONTRAST, 06/05/2020, 13:16. FINDINGS: Degenerative anterolisthesis of C4 on C5 and C5 on C6 measuring 1-2 millimeters. Otherwise normal cervical vertebral body height and alignment. No suspicious focal marrow signal abnormality or bone marrow edema. Regional soft tissues are normal. No cord signal abnormality identified. No abnormal enhancement in the cord or meninges. C2-C3: No spinal canal or neural foraminal stenosis. C3-C4: No spinal canal stenosis. Mild bilateral neural foraminal narrowing due to facet and uncovertebral hypertrophy. C4-C5: No spinal canal stenosis. Mild bilateral neural foraminal narrowing due to facet and uncovertebral hypertrophy. C5-C6: Mild spinal canal stenosis due to posterior disc-osteophyte complex flattening the ventral cord slightly. Facet and uncovertebral hypertrophy combine to produce moderate bilateral neural foraminal stenosis. C6-C7: Mild spinal canal stenosis due to posterior disc osteophyte complex flattening the ventral cord slightly. Facet and uncovertebral hypertrophy combine to produce severe left and mild right neural foraminal stenosis. C7-T1: No spinal canal or neural foraminal stenosis. IMPRESSION: No cord signal abnormality identified. Mild spinal canal stenosis at C5-C6 and C6-C7. Severe left neural foraminal stenosis at C6-C7. Dictated by: Estuardo Worrell M.D. on 09/03/2021 at 14:00 Approved by: Estuardo Worrell M.D. on 09/03/2021 at 14:04
== END ==
PROVIDERS: PCP Family Medicine; Referring Provider Psychiatry & Neurology Neurology; Visit Provider Psychiatry & Neurology Neurology
DX: G35 Multiple sclerosis (principal); M48.02 Spinal stenosis, cervical region
CPT/HCPCS: 70553; 72156

== ENCOUNTER → 2021-09-25 09:11 | Outpatient (CLI) | payer OTHER, MEDICAID, SELFPAY ==
[2021-09-25 10:28] LABS: COVID19 -Nasal RAPID Negative (Negative)
== END ==
PROVIDERS: PCP Family Medicine; Referring Provider Internal Medicine; Visit Provider Internal Medicine
DX: Z20.822 Contact with and (suspected) exposure to COVID-19 (principal)
CPT/HCPCS: 87635; C9803

== ENCOUNTER → 2021-09-25 09:13 | Outpatient (CLI) | payer OTHER, MEDICAID, SELFPAY ==
--- NOTE | 2021-09-30 09:03 | PM.PFT.1 ---
Pulmonary Function Test Referral & Results Date Patient Seen: 09/25/21 Requesting provider: Rachelle Gomes Results: The spirometry demonstrates an FVC of 2.32 L which is 77% of predicted. The FEV1 was measured at 1.94 L which is 83% of predicted. The FEV1/FVC ratio was 84 which is 107% of predicted. Following the administration of bronchodilator there was no appreciable change. Lung volumes show an SVC of 2.31 L which is 81% of predicted. The diffusing capacity was measured at 19.24 which is 89% of predicted. The maximum voluntary ventilation was normal Interpretation: This study demonstrates possibly very mild obstructive lung disease based on minimal reduction FEV1 although FEV1/FVC ratio is preserved and there really is no evidence of benefit following bronchodilator There is a very mild reduction in SVC suggesting the presence of very mild restrictive lung disease which if present, may explain the abnormality of the FEV1 above Overall however these findings are very minimal and this study could be considered as demonstrating normal pulmonary function as well. However reviewing prior PFTs done in September 2019, at that time lung volumes were more abnormal and diffusing capacity was a bit more abnormal both having improved on this study. I would consider therefore that this patient does have a mild restrictive lung disease with improved numbers on current study. Clinical correlation suggested
== END ==
PROVIDERS: PCP Family Medicine; Referring Provider Internal Medicine Rheumatology; Visit Provider Internal Medicine Rheumatology
DX: I27.0 Primary pulmonary hypertension (principal); M34.1 CR(E)ST syndrome; Z20.822 Contact with and (suspected) exposure to COVID-19
CPT/HCPCS: 87635; 94060; 94726; 94729; C9803

== ENCOUNTER → 2022-05-21 10:43 | Outpatient (CLI) | payer OTHER, MEDICAID, SELFPAY ==
[2022-05-21 11:57] LABS: Add Manual Diff / Slide Review NO; Basophils Absolute Auto 100 /uL (0-100); Basophils Percent Auto 1.1 % (0-2); Eosinophils Absolute Auto 600 /uL (0-450); Eosinophils Percent Auto 5.6 % (2-4); Hematocrit 36.4 % (36-46); Hemoglobin 11.4 g/dL (12.0-16.0); Lymphocytes Absolute Auto 3800 /uL (1100-4500); Lymphocytes Percent Auto 38.2 % (25-40); Mean Corpuscular HGB Conc 31.2 % (30-36); Mean Corpuscular Hemoglobin 21.2 PG (26-34); Mean Corpuscular Volume 67.9 fL (80-100); Monocytes Absolute Auto 800 /uL (0-900); Monocytes Percent Auto 7.6 % (3-14); Neutrophils Absolute Auto 4800 /uL (1500-7000); Neutrophils Percent Auto 47.5 % (50-75); Platelet Count 372 X10^3/uL (150-400); Red Blood Cell Count 5.36 X10^6/uL (4.0-5.2); Red Cell Distribution Width 16.4 % (11.6-14.8)
[2022-05-21 12:44] LABS: Alanine Aminotransferase 38 IU/L (<35); Albumin 4.4 g/dL (3.5-5.0); Albumin Globulin Ratio 1.6 (1.0-2.8); Alkaline Phosphatase 54 U/L (38-126); Aspartate Aminotransferase 29 IU/L (14-36); BUN Creatinine Ratio 28.8 (6-22); Bilirubin Total 0.5 mg/dL (0.2-1.3); Blood Urea Nitrogen 17 mg/dL (7-17); Carbon Dioxide 27 mmol/L (22-32); Chloride 103 mmol/L (98-107); Estimated Glomerular Filt Rate > 60 mL/min (>60); Globulin 2.8 g/dL (1.7-4.1); Glucose 90 mg/dL (80-110); HEMOLYSIS < 15 (0-50); Potassium 4.2 mmol/L (3.4-5.1); Sodium 139 mmol/L (137-145); Total Protein 7.2 g/dL (6.3-8.2)
[2022-05-21 13:15] LABS: Anisocytosis 2+; Ovalocytes 1+; Target Cells 2+
[2022-05-27 05:05] LABS: QuantiFERON Mitogen Value >10.00 IU/mL (.); QuantiFERON Nil Value 0.33 IU/mL (.); QuantiFERON TB Gold Plus Negative (Negative); QuantiFERON TB1 Ag Value 0.18 IU/mL (.); QuantiFERON TB2 Ag Value 0.26 IU/mL (.)
== END ==
PROVIDERS: PCP Family Medicine; Referring Provider Internal Medicine Rheumatology; Visit Provider Internal Medicine Rheumatology
DX: Z79.899 Other long term (current) drug therapy (principal); M34.1 CR(E)ST syndrome; M06.09 Rheumatoid arthritis without rheumatoid factor, multiple sites; M06.4 Inflammatory polyarthropathy; M79.7 Fibromyalgia; R74.8 Abnormal levels of other serum enzymes; M34.9 Systemic sclerosis, unspecified
CPT/HCPCS: 36415; 80053; 85025; 86480

== ENCOUNTER → 2022-06-25 11:32 | Outpatient (CLI) | payer OTHER, MEDICAID, SELFPAY ==
--- NOTE | 2022-07-01 08:20 | P.PFT.S_ITS ---
Pulmonary Function Test Referral & Results Date Patient Seen: 06/25/22 Results: The spirometry demonstrates an FVC of 2.27 L which is 75% of predicted. The FEV1 was measured at 1.91 L which is 82% of predicted. The FEV1/FVC ratio was 84 which is 109% of predicted. Following the administration of bronchodilator there was no notable change. Lung volumes show an SVC of 2.25 L which is 80% of predicted. The diffusing capacity was measured at 16.45 which is 76% of predicted. No hem oglobin value was provided, so no correction for potential anemia could be made, if appropriate. The maximum voluntary ventilation was normal Interpretation: This study demonstrates possibly very mild obstructive lung disease based on minimal reduction FEV1 although FEV1/FVC ratio is preserved There is also minimal reduction in lung volumes suggesting the possibility of very mild restrictive lung disease which may explain the abnormality in the FEV1 above There is also minimal reduction diffusing capacity suggesting the possibility of disease at the capillary alveolar level Compared to PFTs performed in September 2021, current study is essentially unchanged, although there maybe more of an abnormality in the diffusing capacity on current study than seen previously Clinical correlation suggested
== END ==
PROVIDERS: PCP Family Medicine; Referring Provider Internal Medicine Rheumatology; Visit Provider Internal Medicine Rheumatology
DX: M34.1 CR(E)ST syndrome (principal); J98.8 Other specified respiratory disorders
CPT/HCPCS: 94060; 94726; 94729

== ENCOUNTER 2023-03-06 12:04 | Emergency (ER) | payer OTHER, MEDICAID, SELFPAY ==
[2023-03-06] VITALS (8 sets, daily range): BP systolic 124–138; BP diastolic 72–83; PULSE 65–81; RESP 20–23; TEMP 37; O2SAT 93–99; BMI 29.2
--- NOTE | 2023-03-06 12:22 | DI.RAD.S_ITS ---
PROCEDURE: XR CHEST 1V INDICATIONS: dyspnea, cough TECHNIQUE: One view of the chest was acquired. COMPARISON: None. FINDINGS: Surgical changes and devices: None. Lungs and pleura: Lungs are clear. No pleural effusions or pneumothorax. Mediastinum: Mediastinal contours appear normal. Heart size is normal. Bones and chest wall: No suspicious bony lesions. Overlying soft tissues appear unremarkable. IMPRESSION: No acute cardiopulmonary abnormality is seen. Approved by: Yimi Norton M.D. on 03/06/2023 at 14:28
--- NOTE | 2023-03-06 12:23 | ED.URI ---
HPI - URI/Sore Throat General Chief Complaint: Shortness of Breath/Dyspnea Stated Complaint: Increased SOB Time Seen by Provider: 03/06/23 12:06 History of Present Illness HPI Narrative: 62yoF with PMH asthma, MS, scleroderma presents by airlift from home on [facility] for shortness of breath. patient has had viral illness for 1 week, she thinks COVID since a friend was positive recently. Has been on steroids and cipro from her PCP but feels like she's getting worse. Related Data Home Medications Medication Instructions Recorded Confirmed CHOLECALCIFEROL (VITAMIN D3) 50,000 iu PO WEEKLY ##0 12/14/10 05/22/20 (VITAMIN D) GABAPENTIN (Gabapentin) 600 mg PO DAILY ##0 12/14/10 05/22/20 baclofen 10 mg tablet 10 mg PO TID ##0 12/14/10 05/22/20 topiramate 100 mg tablet (Topamax) 100 mg PO BID ##0 12/14/10 05/22/20 fluoxetine 10 mg capsule 10 mg PO DAILY ##0 03/11/17 05/22/20 sucralfate 1 gram tablet 1 gm PO ACHS ##0 03/11/17 05/22/20 tramadol 50 mg tablet 50 - 100 mg PO Q6HP PRN Pain 03/11/17 05/22/20 (Scale Score 1-3) ##0 albuterol sulfate 2.5 mg/3 mL 2.5 mg inhalation Q4H PRN Wheezing 01/18/20 05/22/20 (0.083 %) solution for nebulization cetirizine 10 mg PO DAILY 01/18/20 05/22/20 fluticasone furoate 100 2 inh inhalation DAILY PRN Allergy 01/18/20 05/22/20 mcg/actuation blister powder for Symptoms inhalation folic acid 5 mg PO DAILY 01/18/20 05/22/20 methotrexate 15 mg PO WEEKLY 01/18/20 05/22/20 prochlorperazine 10 mg PO TID PRN Nausea 01/18/20 05/22/20 sucralfate 1 g PO QACHS PRN Abdominal 01/18/20 05/22/20 Discomfort sumatriptan 100 mg PO Q4H PRN Migraine Headache 01/18/20 05/22/20 topiramate 100 mg PO BID 01/18/20 05/22/20 Previous Rx's Medication Instructions Recorded pantoprazole 40 mg tablet,delayed 40 mg PO DAILY erosive gastritis 04/10/20 release #60 tabs albuterol sulfate 2 mg/5 mL oral 2 mg (5 mL) PO TID PRN shortness 03/06/23 syrup of breath or wheezing #473 mL albuterol sulfate 90 mcg/actuation 1 puff inhalation QID PRN 03/06/23 aerosol inhaler (Ventolin HFA) shortness of breath or wheezing #8.5 grams prednisone 20 mg tablet 40 mg (2 x 20 mg) PO DAILY #10 tabs 03/06/23 Allergies Allergy/AdvReac Type Severity Reaction Status Date / Time ciprofloxacin [CIPROFLOXACIN] Allergy Severe DECREASED Verified 05/22/20 14:03 BP tizanidine [TIZANIDINE] Allergy Severe DECREASED Verified 05/22/20 14:03 BP Sulfa (Sulfonamide Allergy Mild HIVES Verified 05/22/20 14:03 Antibiotics) [SULFA (SULFONAMIDE ANTIBIOTICS)] Review of Systems Review of Systems Narrative: otherwise negative Patient History Medical History Optic neuritis Multiple sclerosis Surgical History Status post vaginal hysterectomy Social History household members: none Smoking Status: Never smoker alcohol intake: never Smoking Status: Never smoker alcohol intake frequency: holidays/special occasions only Substance Use Type: does not use Exam Initial Vital Signs Initial Vital Signs: Vital Signs Pulse Rate 75 03/06/23 12:11 Blood Pressure 138/83 03/06/23 12:11 Pulse Oximetry 97 03/06/23 12:11 Const: Awake, alert, no acute distress, nontoxic appearing Cardiac: regular rate, regular rhythm RESP: soft expiratory wheezes upper lungs, speaking in complete sentences, unlabored breathing GI: Atraumatic, soft, nontender, nondistended, no rebound, no guarding MSK: Atraumatic, full range of motion, pulses equal Skin: Warm, Dry, intact, no rashes Neuro: AO x3, CN II-XII grossly intact, moves all extremities Psych: affect normal, mood normal, not suicidal, not homicidal Course Orders Ordered: Discontinued Medications Albuterol/Ipratropium (Albuterol/Ipratropium 3 Ml Ampul) 6 ml INH NOW ONE Stop: 03/06/23 12:50 Last Admin: 03/06/23 13:10 Dose: 6 ml Documented By: PHUONG Sodium Chloride (Normal Saline 0.9%) 1,000 mls @ 1,000 mls/hr IV BOLUS ONE Stop: 03/06/23 13:21 Last Infusion: 03/06/23 13:53 Dose: Infused Documented By: Admin: 03/06/23 12:34 Dose: 1,000 mls/hr Documented By: GENO Ondansetron HCl (Ondansetron 4 Mg/2 Ml Inj) 4 mg IV NOW ONE Stop: 03/06/23 12:23 Last Admin: 03/06/23 12:34 Dose: 4 mg Documented By: GENO Vital Signs Vital signs: Vital Signs - 8 hr 03/06/23 12:11 03/06/23 12:11 03/06/23 12:16 Temperature 98.6 F Pulse Rate 75 81 Respiratory Rate 21 Blood Pressure 138/83 138/83 Pulse Oximetry 97 96 Oxygen Delivery Method Room Air 03/06/23 12:30 03/06/23 13:22 03/06/23 13:30 Temperature Pulse Rate 74 72 81 Respiratory Rate 23 20 Blood Pressure Pulse Oximetry 95 96 96 Oxygen Delivery Method Room Air 03/06/23 13:50 03/06/23 13:50 03/06/23 14:00 Temperature Pulse Rate 75 65 Respiratory Rate 20 20 Blood Pressure 125/72 Pulse Oximetry 97 99 Oxygen Delivery Method Room Air 03/06/23 14:00 Temperature Pulse Rate Respiratory Rate Blood Pressure 124/73 Pulse Oximetry Oxygen Delivery Method MDM - URI/Sore Throat Differential Diagnosis Differential diagnosis: Likely upper respiratory infection, viral infection and bronchitis Lab Data 03/06/23 13:21 03/06/23 13:21 Labs: Lab Results 03/06/23 03/06/23 03/06/23 Range/Units 12:34 12:49 13:21 WBC 11.4 H (4.5-11.0) X10^3/uL RBC 6.01 H (4.0-5.2) X10^6/uL Hgb 12.2 (12.0-16.0) g/dL Hct 38.8 (36-46) % MCV 64.7 L (80-100) fL MCH 20.3 L (26-34) PG MCHC 31.4 (30-36) % RDW 15.5 H (11.6-14.8) % Plt Count 353 (150-400) X10^3/uL Neut % (Auto) 50.6 (50-75) % Lymph % (Auto) 38.7 (25-40) % [place] % (Auto) 5.0 (3-14) % Eos % (Auto) 4.9 H (2-4) % Baso % (Auto) 0.8 (0-2) % Neut # (Auto) 5800 (1178-0337) /uL Lymph # (Auto) 4400 (5928-4486) /uL [place] # (Auto) 600 (0-900) /uL Eos # (Auto) 600 H (0-450) /uL Baso # (Auto) 100 (0-100) /uL Toxic Vacuolation Present H RBC Morphology See below Hypochromasia 1+ H Anisocytosis 2+ H Microcytosis 2+ H Target Cells 2+ H Sodium 139 (137-145) mmol/L Potassium 3.4 (3.4-5.1) mmol/L Chloride 101 (98-107) mmol/L Carbon Dioxide 27 (22-32) mmol/L BUN 21 H (7-17) mg/dL Creatinine 0.50 L (0.52-1.04) mg/dL Estimated GFR > 60 (>60) mL/min BUN/Creatinine Ratio 42.0 H (6-22) Glucose 124 H (80-110) mg/dL Calcium 9.9 (8.4-10.2) mg/dL Total Bilirubin 0.5 (0.2-1.3) mg/dL AST 35 (14-36) IU/L ALT 54 H (<35) IU/L Alkaline Phosphatase 53 (38-126) U/L Total Creatine Kinase 239 H (30-135) U/L Troponin I < 0.012 (0.01-0.034) ng/mL Total Protein 8.1 (6.3-8.2) g/dL Albumin 4.5 (3.5-5.0) g/dL Globulin 3.6 (1.7-4.1) g/dL Albumin/Globulin Ratio 1.3 (1.0-2.8) Urine Color Yellow Urine Appearance Clear Urine pH 7.0 (4.5-8.0) Ur Specific [place] <=1.005 (1.000-1.035) Urine Protein Negative (Negative) Urine Glucose (UA) Negative (Negative) g/dL Urine Ketones Negative (NEGATIVE) Urine Occult Blood Negative (Negative) Urine Nitrate Negative (Negative) Urine Bilirubin Negative (NEGATIVE) Urine Urobilinogen 0.2 (0.2) E.U./dL Ur Leukocyte Esterase Negative (NEGATIVE) Urine RBC None seen (0-5/HPF) Urine WBC None seen (0-5/HPF) Ur Squamous Epith Cells None seen (0-5/HPF) Urine Bacteria Occasional (0-1) (None) Ur Culture Indicated? Cult not indicated Vol Urine Centrifuged 10ml (spun) SARS-CoV-2 (PCR) Negative (Negative) Influenza A (RT-PCR) Flu a negative (NEGATIVE) Influenza B (RT-PCR) Flu b negative (NEGATIVE) RSV (PCR) Positive A (Negative) MDM Narrative Medical decision making narrative: worsening shortness of breath, hx asthma. Wheezing but O2 saturations stable, conversational on room air. Labs normal - mild bump in wbc count (11), patient has been on steroids. CXR negative for pneumonia/acute findings. Still trace wheezes on exam, improved from prior. Patient lightheaded but ambulatory, O2 saturations stable on ambulation. Will continue steroids, no need for additional abx. Patient requested refill of albuterol, and inhaler and vials for nebulizers sent to pharmacy of choice Discharge Plan Departure Patient Disposition: Home Clinical Impression: Respiratory syncytial virus (RSV) Asthma exacerbation Qualifiers: Asthma severity: moderate Asthma persistence: unspecified Qualified Code(s): J45.901 - Unspecified asthma with (acute) exacerbation Instructions: DI for Acute Bronchitis Prescriptions: New albuterol sulfate 2 mg/5 mL syrup 2 mg PO TID PRN (Reason: shortness of breath or wheezing) Qty: 473 0RF albuterol sulfate [Ventolin HFA] 90 mcg/actuation HFA aerosol inhaler 1 puff inhalation QID PRN (Reason: shortness of breath or wheezing) Qty: 8.5 0RF prednisone 20 mg tablet 40 mg PO DAILY Qty: 10 0RF No Action CHOLECALCIFEROL (VITAMIN D3) (VITAMIN D) 50,000 units capsule 50,000 iu PO WEEKLY Qty: 0 baclofen 10 MG tablet 10 mg PO TID Qty: 0 GABAPENTIN (Gabapentin) 600 mg PO DAILY Qty: 0 topiramate [Topamax] 100 MG tablet 100 mg PO BID Qty: 0 sucralfate 1 GM tablet 1 gm PO ACHS Qty: 0 tramadol 50 MG tablet 50 - 100 mg PO Q6HP PRN (Reason: Pain (Scale Score 1-3)) Qty: 0 fluoxetine 10 MG capsule 10 mg PO DAILY Qty: 0 pantoprazole 40 mg tablet,delayed release (DR/EC) 40 mg PO DAILY Qty: 60 0RF sumatriptan 100 mg tablet 100 mg PO Q4H PRN (Reason: Migraine Headache) sucralfate 1 gram tablet 1 g PO QACHS PRN (Reason: Abdominal Discomfort) topiramate 100 mg tablet 100 mg PO BID cetirizine 10 mg tablet 10 mg PO DAILY folic acid 1 mg tablet 5 mg PO DAILY prochlorperazine 10 mg tablet 10 mg PO TID PRN (Reason: Nausea) methotrexate 2.5 mg tablet 15 mg PO WEEKLY albuterol sulfate 2.5 mg /3 mL (0.083 %) solution for nebulization 2.5 mg inhalation Q4H PRN (Reason: Wheezing) Patient Comments: TAKE 3 ML (2.5 MG TOTAL) BY NEBULIZATION EVERY 4 (FOUR) HOURS NEEDED FOR WHEEZING. fluticasone furoate 100 mcg/actuation Blister With Device 2 inh INHALATION DAILY PRN (Reason: Allergy Symptoms) Referrals: Bennett Dunne MD [Primary Care Provider] - Stand Alone Forms: Patient Portal/API
[2023-03-06] MEDS: SODIUM CHLORIDE 0.9% 1,000 ML 1000 ML IV (12:34)
[2023-03-06] MEDS: ONDANSETRON 4 MG/2 ML INJ IV (12:34)
[2023-03-06 13:01] LABS: Urine Volume 10mL (spun)
[2023-03-06 13:08] LABS: Appearance Urine UA CLEAR; Bilirubin Urine UA NEGATIVE (NEGATIVE); Color Urine UA YELLOW; Glucose Urine UA NEGATIVE (Negative); Ketones Urine UA NEGATIVE (NEGATIVE); Leukocyte Esterase Urine UA NEGATIVE (NEGATIVE); Nitrite Urine UA NEGATIVE (Negative); Occult Blood Urine UA NEGATIVE (Negative); Protein Urine UA NEGATIVE (Negative); Specific Gravity Urine UA <=1.005 (1.000-1.035); Urobilinogen Urine UA 0.2 E.U./dL (0.2)
[2023-03-06] MEDS: ALBUTEROL/IPRATROPIUM 3 ML AMPUL 6 ML INH (13:10)
[2023-03-06 13:16] LABS: Influenza A - CEPHEID Flu A NEGATIVE (NEGATIVE); Influenza B - CEPHEID Flu B NEGATIVE (NEGATIVE); Respiratory Syncytial Virus POSITIVE (Negative)
[2023-03-06 13:21] LABS: COVID-19 CEPHEID 4-PLEX PCR Negative (Negative)
[2023-03-06 13:25] LABS: Bacteria Urine Occasional (0-1); Culture Indicated Urine Cult Not Indicated; RBC Urine None Seen (0-5/HPF); Squamous Epithelial Cell Urine None Seen (0-5/HPF); WBC Urine None Seen (0-5/HPF)
[2023-03-06 13:31] LABS: Basophils Absolute Auto 100 /uL (0-100); Basophils Percent Auto 0.8 % (0-2); Eosinophils Absolute Auto 600 /uL (0-450); Eosinophils Percent Auto 4.9 % (2-4); Hematocrit 38.8 % (36-46); Hemoglobin 12.2 g/dL (12.0-16.0); Lymphocytes Absolute Auto 4400 /uL (1100-4500); Lymphocytes Percent Auto 38.7 % (25-40); Mean Corpuscular HGB Conc 31.4 % (30-36); Mean Corpuscular Hemoglobin 20.3 PG (26-34); Mean Corpuscular Volume 64.7 fL (80-100); Monocytes Absolute Auto 600 /uL (0-900); Neutrophils Absolute Auto 5800 /uL (1500-7000); Neutrophils Percent Auto 50.6 % (50-75); Platelet Count 353 X10^3/uL (150-400); Red Blood Cell Count 6.01 X10^6/uL (4.0-5.2); Red Cell Distribution Width 15.5 % (11.6-14.8); White Blood Cell Count 11.4 X10^3/uL (4.5-11.0)
[2023-03-06 13:32] LABS: Add Manual Diff / Slide Review SLIDE REVIEW
[2023-03-06 13:40] LABS: Alanine Aminotransferase 54 IU/L (<35); Albumin 4.5 g/dL (3.5-5.0); Albumin Globulin Ratio 1.3 (1.0-2.8); Alkaline Phosphatase 53 U/L (38-126); Aspartate Aminotransferase 35 IU/L (14-36); Bilirubin Total 0.5 mg/dL (0.2-1.3); Blood Urea Nitrogen 21 mg/dL (7-17); Calcium 9.9 mg/dL (8.4-10.2); Carbon Dioxide 27 mmol/L (22-32); Chloride 101 mmol/L (98-107); Creatine Kinase 239 U/L (30-135); Estimated Glomerular Filt Rate > 60 mL/min (>60); Globulin 3.6 g/dL (1.7-4.1); Glucose 124 mg/dL (80-110); HEMOLYSIS 25 (0-50); Potassium 3.4 mmol/L (3.4-5.1); Sodium 139 mmol/L (137-145); Total Protein 8.1 g/dL (6.3-8.2)
[2023-03-06 13:49] LABS: Anisocytosis 2+; Hypochromasia 1+; Microcytosis 2+; Target Cells 2+
[2023-03-06 13:50] LABS: Toxic Vacuolation Present
[2023-03-06 13:51] LABS: Troponin I < 0.012 ng/mL (0.01-0.034)
== END 2023-03-06 14:39 | disposition home or self-care (01) ==
PROVIDERS: Emergency Provider Emergency Medicine; PCP Family Medicine
DX: B33.8 Other specified viral diseases (principal); J45.901 Unspecified asthma with (acute) exacerbation; Z20.822 Contact with and (suspected) exposure to COVID-19
CPT/HCPCS: 0241U; 71045; 80053; 81001; 82550; 84484; 85025; 93005; 94640; 96361; 96374; 99284; J2405

== ENCOUNTER → 2025-01-09 12:29 | Outpatient (CLI) | payer OTHER, SELFPAY ==
--- NOTE | 2025-01-09 12:29 | DI.MRI.S_ITS ---
PROCEDURE: MR SHOULDER LT WO CON INDICATIONS: r/o RTC tear TECHNIQUE: Noncontrast oblique coronal T2 fast spin echo with fat saturation, oblique sagittal T1 spin echo and T2 fast spin echo with fat saturation, axial T1 spin echo and T2 fast spin echo with fat saturation through the shoulder. COMPARISON: None. FINDINGS: Image quality: Excellent. Rotator cuff: In the supraspinatus, there is high-grade articular sided tear at the anterior footprint (7:9). 8 mm calcification about the footprint at the junction supraspinatus and infraspinatus, representing hydroxyapatite deposition disease. Low-grade articular sided tear at the posterior footprint of the infraspinatus (09:16). The teres minor is unremarkable. Mild tendinosis of the subscapularis, without tear. No muscle edema. Mild fatty infiltration of the teres minor. Bones and bursae: Mild degenerative changes acromioclavicular joint. Type 1 acromion. No os acromiale. Mild subacromial/subdeltoid bursitis. Multifocal mild subchondral cystic changes at the greater tuberosity, reactive. No acute fracture. Moderate degenerative changes of the glenohumeral joint with large area of high-grade chondral loss in the glenoid and the medial humeral head. Mild osteophytosis of the humeral head. Capsule and soft tissues: Near circumferential labral tear. There is a 1.4 cm cystic lesion between the scapular spine and the subscapularis muscle, which may represent a paralabral cyst extending from the posterior labrum (9:2). Moderate tenosynovitis of the extra-articular biceps tendon. Moderate tendinosis of the intra-articular biceps tendon. Small glenohumeral effusion. No intra-articular body. IMPRESSION: 1. High-grade tear at the anterior supraspinatus. 2. 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 3. Low-grade tear of the infraspinatus. 4. Moderate degenerative changes of the glenohumeral articulation. 5. Near circumferential labral tear with 1.4 cm likely paralabral cyst extending from the posterior labrum. 6. Moderate tenosynovitis of the extra-articular biceps tendon. Moderate tendinosis of the intra-articular biceps tendon. Dictated by: Kerry Jimenez M.D. on 01/09/2025 at 14:54 Approved by: Kerry Jimenez M.D. on 01/09/2025 at 15:06
== END ==
LOC: MRI 12:29
PROVIDERS: PCP Family Medicine; Referring Provider Orthopaedic Surgery; Visit Provider Orthopaedic Surgery
DX: M75.42 Impingement syndrome of left shoulder (principal); M75.52 Bursitis of left shoulder; M11.012 Hydroxyapatite deposition disease, left shoulder; M75.22 Bicipital tendinitis, left shoulder; S43.492A Other sprain of left shoulder joint, initial encounter
CPT/HCPCS: 73221